=== PATIENT | female | born 1985 | race African-American/Black ===

== ENCOUNTER 2016-12-08 00:14 | Emergency (ER) | payer MEDICAID ==
[~2016-12-08] VITALS: Ht 157.5 cm; Wt 68.0 kg
[2016-12-08] MEDS ORDERED: HYDROCODONE/APAP 7.5/325MG 1 TAB TABLET PO ONE (00:45)
[2016-12-08] MEDS ORDERED: TETANUS, DIPHTHERIA, PERTUSSIS VAC/PF 0.5ML (>7YR OLD) IM ONE (00:45)
[2016-12-08 01:13] VITALS: BP 183/92
[2016-12-08] MEDS ORDERED: BACITRACIN ZINC OINT UDPKT TOP ONE (01:15)
== END 2016-12-08 01:37 | disposition home or self-care (01) ==
LOC: ER 00:23
DX: T23.102A Burn of first degree of left hand, unspecified site, initial encounter (principal); I10 Essential (primary) hypertension; X12.XXXA Contact with other hot fluids, initial encounter; Y93.89 Activity, other specified; Y99.8 Other external cause status; Y92.89 Other specified places as the place of occurrence of the external cause
CPT/HCPCS: 90471; 90715; 99283; Z7610

== ENCOUNTER 2018-04-15 20:15 | Emergency (ER) | payer MEDICAID ==
[~2018-04-15] VITALS: Ht 160 cm; Wt 69.0 kg
[2018-04-15 21:45] LABS: BASOPHILS % 0.2 % (0.0-2.0); EOSINOPHILS % 0.3 % (0.0-5.0); HEMATOCRIT. 34.7 % (36.0-48.0); HEMOGLOBIN. 11.6 g/dL (12.0-16.0); LYMPHOCYTES % 12.9 % (20.0-50.0); MEAN CORPUSCULAR HEMOGLOBIN 28.9 pg (28.0-32.0); MEAN CORPUSCULAR VOLUME 86.7 fL (81.0-99.0); MEAN PLATELET VOLUME 7.5 fl (7.4-10.4); MONOCYTES % 11.8 % (2.0-8.0); NEUTROPHILS % 74.8 % (40.0-76.0); PLATELET 251 x1000/uL (130-400)
[2018-04-15 21:52] LABS: CHLORIDE 103 mEq/L (98-107)
[2018-04-15 22:15] LABS: CLARITY URINE TURBID (CLEAR); COLOR URINE YELLOW (YELLOW); KETONES URINE NEGATIVE (NEGATIVE); LEUKOCYTE ESTERASE URINE NEGATIVE (NEGATIVE); NITRITE URINE NEGATIVE (NEGATIVE); OCCULT BLOOD URINE 3+ (NEGATIVE); PH URINE 8.5 (4.5-8.0); PROTEIN URINE 2+ (NEGATIVE); SPECIFIC GRAVITY URINE 1.021 (1.005-1.030)
[2018-04-15 22:16] LABS: B-HCG QUANTITATIVE 89744 mIU/mL (<3)
[2018-04-15 23:53] VITALS: BP 130/79
== END 2018-04-16 00:17 | disposition home or self-care (01) ==
LOC: ER 20:15
DX: O20.0 Threatened abortion (principal); O98.811 Other maternal infectious and parasitic diseases complicating pregnancy, first trimester; N30.00 Acute cystitis without hematuria; O16.1 Unspecified maternal hypertension, first trimester; O99.011 Anemia complicating pregnancy, first trimester; Z3A.10 10 weeks gestation of pregnancy
CPT/HCPCS: 36415; 76830; 76856; 80053; 81003; 81025; 84702; 85025; 86850; 86900; 86901; 87086; 99285; Z7610

== ENCOUNTER 2018-08-18 05:33 | Observation (INO) | payer MEDICAID ==
[~2018-08-18] VITALS: Ht 157.5 cm; Wt 77.1 kg
[2018-08-18] MEDS ORDERED: MAGNESIUM 20 G PREMIX (L & D) 500 ML IV ONE (05:53)
[2018-08-18] MEDS ORDERED: DEXT 5%/LR + PITOCIN 20UNITS/L 1,000 ML IV SCH (06:03)
[2018-08-18] MEDS ORDERED: MAGNESIUM 4 G PREMIX 100 ML IV ONE (06:15)
[2018-08-18] MEDS ORDERED: MAGNESIUM 2 G PREMIX 50 ML IV ONE (06:15)
[2018-08-18] MEDS: LACTATED RINGERS 1,000 ML IV SCH (06:22)
[2018-08-18] MEDS: MAGNESIUM 20 G PREMIX (L & D) 500 ML IV SCH ×2 (06:26→16:02)
[2018-08-18] MEDS ORDERED: SODIUM CHLORIDE 0.9% 10ML VIAL ONE (06:27)
[2018-08-18] MEDS ORDERED: HYDRALAZINE 20MG/ML VIAL ONE (06:27)
[2018-08-18 06:51] LABS: CLARITY URINE CLEAR (CLEAR); COLOR URINE YELLOW (YELLOW); KETONES URINE TRACE (NEGATIVE); LEUKOCYTE ESTERASE URINE NEGATIVE (NEGATIVE); NITRITE URINE NEGATIVE (NEGATIVE); OCCULT BLOOD URINE TRACE (NEGATIVE); PROTEIN URINE 1+ (NEGATIVE); SPECIFIC GRAVITY URINE 1.013 (1.005-1.030); UROBILINOGEN URINE 0.2 E.U./dL (0.2-1.0)
[2018-08-18 06:52] LABS: CHLORIDE 105 mEq/L (98-107)
[2018-08-18 06:53] LABS: BASOPHILS % 1.2 % (0.0-2.0); EOSINOPHILS % 0.4 % (0.0-5.0); HEMOGLOBIN. 12.8 g/dL (12.0-16.0); LYMPHOCYTES % 33.5 % (20.0-50.0); MEAN CORPUSCULAR HEMOGLOBIN 30.9 pg (28.0-32.0); MEAN CORPUSCULAR VOLUME 91.4 fL (81.0-99.0); MEAN PLATELET VOLUME 8.7 fl (7.4-10.4); MONOCYTES % 13.7 % (2.0-8.0); NEUTROPHILS % 51.2 % (40.0-76.0); PLATELET 287 x1000/uL (130-400); RED BLOOD CELL COUNT 4.16 mill/uL (4.2-5.4); RED CELL DISTRIBUTION WIDTH 15.4 % (11.6-14.6)
[2018-08-18] MEDS ORDERED: LIDOCAINE HCL/PF 1% 10 MG/ML 5ML VIAL ONE (06:58)
[2018-08-18] MEDS ORDERED: PROPOFOL 200MG/20ML VIAL IV ONE (06:58)
[2018-08-18] MEDS ORDERED: FENTANYL CITRATE/PF 50MCG/ML 2ML VIAL ONE (06:59)
[2018-08-18 07:07] LABS: D-DIMER 2.1 mg/L FEU (<0.50); INR 0.8; PARTIAL THROMBOPLASTIN TIME 25.8 sec (23.4-31.0)
[2018-08-18 07:09] LABS: *AMPHETAMINES SCREEN URINE NEGATIVE (NEGATIVE); *BARBITURATES SCREEN URINE NEGATIVE (NEGATIVE); *BENZODIAZEPINES SCREEN URINE NEGATIVE (NEGATIVE); *COCAINE SCREEN URINE NEGATIVE (NEGATIVE)
[2018-08-18 07:10] LABS: METHADONE URINE SCREEN NEGATIVE (NEGATIVE); OPIATES URINE SCREEN NEGATIVE (NEGATIVE); PHENCYCLIDINE URINE SCREEN NEGATIVE (NEGATIVE)
[2018-08-18 07:22] LABS: PROTHROMBIN TIME 8.4 sec (9.1-11.1)
[2018-08-18] MEDS ORDERED: MORPHINE SULFATE/PF 1MG/ML 10ML AMP ONE (07:24)
[2018-08-18 07:45] LABS: HEPATITIS B SURFACE ANTIGEN NEGATIVE
[2018-08-18 08:16] LABS: CANNABINOID URINE SCREEN PRESUMTIVE POSITIVE (NEGATIVE)
[2018-08-18] MEDS ORDERED: HYDRALAZINE 20MG/ML VIAL IV PRN (08:30)
[2018-08-18] MEDS: BUTORPHANOL TARTRATE 2 MG/ML VIAL IM PRN ×2 (08:34→17:05)
[2018-08-18] MEDS ORDERED: BETAMETHASONE ACET/BETAMET 30 MG/5 ML VIAL IM NR (09:15)
[2018-08-18] MEDS ORDERED: ONDANSETRON HCL 4MG/2ML INJ IV PRN (10:15)
[2018-08-18] MEDS: LABETALOL HCL 300MG TABLET PO SCH (10:41)
[2018-08-18] MEDS: ACETAMINOPHEN 325MG TABLET PO PRN (11:01)
[2018-08-18] MEDS ORDERED: NIFEDIPINE XL 60MG TAB PO SCH (11:30)
[2018-08-18 12:05] LABS: HEMATOCRIT. 38.1 % (36.0-48.0); HEMOGLOBIN. 12.8 g/dL (12.0-16.0); MEAN CORPUSCULAR HEMOGLOBIN 30.8 pg (28.0-32.0); MEAN CORPUSCULAR VOLUME 91.8 fL (81.0-99.0); MEAN PLATELET VOLUME 7.8 fl (7.4-10.4); PLATELET 228 x1000/uL (130-400); RED BLOOD CELL COUNT 4.15 mill/uL (4.2-5.4); RED CELL DISTRIBUTION WIDTH 15.5 % (11.6-14.6)
[2018-08-18 12:11] LABS: CHLORIDE 105 mEq/L (98-107)
[2018-08-18 13:39] LABS: PLATELET ESTIMATE NORMAL
[2018-08-18 14:47] LABS: HEPATITIS A AB IGM NEGATIVE (NEGATIVE)
[2018-08-18] MEDS ORDERED: NIFEDIPINE 10MG CAPSULE PO NR (15:45)
[2018-08-19] MEDS: MAGNESIUM 20 G PREMIX (L & D) 500 ML IV SCH ×3 (00:06→21:37)
[2018-08-19] MEDS: ACETAMINOPHEN 325MG TABLET PO PRN ×3 (00:11→16:48)
[2018-08-19] MEDS ORDERED: BETAMETHASONE ACET/BETAMET 30 MG/5 ML VIAL IM NR (09:00)
[2018-08-19] MEDS: LACTATED RINGERS 1,000 ML IV SCH (09:43)
[2018-08-19 10:50] LABS: BASOPHILS % 0.2 % (0.0-2.0); HEMATOCRIT. 34.1 % (36.0-48.0); HEMOGLOBIN. 11.4 g/dL (12.0-16.0); LYMPHOCYTES % 14.8 % (20.0-50.0); MEAN CORPUSCULAR HEMOGLOBIN 30.7 pg (28.0-32.0); MEAN CORPUSCULAR VOLUME 91.9 fL (81.0-99.0); MEAN PLATELET VOLUME 8.3 fl (7.4-10.4); MONOCYTES % 10.3 % (2.0-8.0); NEUTROPHILS % 74.7 % (40.0-76.0); PLATELET 186 x1000/uL (130-400); RED BLOOD CELL COUNT 3.71 mill/uL (4.2-5.4); RED CELL DISTRIBUTION WIDTH 15.8 % (11.6-14.6)
[2018-08-19 10:52] LABS: FIBRINOGEN 473 mg/dL (200-400); INR 0.9; PARTIAL THROMBOPLASTIN TIME 27.1 sec (23.4-31.0)
[2018-08-19 10:57] LABS: CHLORIDE 101 mEq/L (98-107)
[2018-08-19] MEDS: LABETALOL HCL 300MG TABLET PO SCH ×2 (11:13→20:42)
[2018-08-19 13:42] LABS: PROTHROMBIN TIME < 10.0 sec (9.1-11.1)
[2018-08-19 21:37] VITALS: BP 135/86
[2018-08-28 13:06] LABS: CANNABINOID CONFIRMATION URINE Positive (.)
== END 2018-08-19 21:45 | disposition short-term general hospital (02) ==
LOC: 8 EST LDRP 05:33
PROVIDERS: ADMIT Obstetrics & Gynecology; ATTEND Obstetrics & Gynecology
DX: O14.92 Unspecified pre-eclampsia, second trimester (principal); O10.912 Unspecified pre-existing hypertension complicating pregnancy, second trimester; Z3A.27 27 weeks gestation of pregnancy
CPT/HCPCS: 36415; 76805; 80053; 80076; 80305; 80349; 81003; 83735; 84484; 84550; 85025; 85379; 85384; 85610; 85730; 86592; 86703; 86709; 86762; 86803; 86850; 86900; 86901; 87086; 87340; 93005; 96365; 96366; 96372; 99281; A4216; G0378; J0360; J0595; J0702; J3475; J3490; 96360; 96361; J2274; J2704; J3010; J7120